=== PATIENT | female | born 1940 | race Caucasian/White ===

== ENCOUNTER 2022-04-15 21:45 | Emergency (ER) | payer MEDICARE, OTHER ==
[~2022-04-15] VITALS: Ht 162.6 cm; Wt 65.0 kg
[2022-04-15] MEDS ORDERED: ATOR40TA28 PO (21:57)
[2022-04-15] MEDS ORDERED: OMEP20 PO (21:57)
[2022-04-15] MEDS ORDERED: ALEN35TA41 PO (21:57)
[2022-04-15] MEDS ORDERED: MELA5TAB40 PO (21:57)
[2022-04-15] MEDS ORDERED: MULT-1203 PO (21:57)
[2022-04-15] MEDS ORDERED: METF-1211 PO (21:57)
[2022-04-15] MEDS ORDERED: LEVO75 PO (21:57)
[2022-04-15] MEDS ORDERED: MEMA5 PO (21:57)
[2022-04-15] MEDS ORDERED: LOSA-382 PO (21:57)
[2022-04-15] MEDS ORDERED: VITA-328 PO (21:57)
[2022-04-15] MEDS ORDERED: VIT1CAPS28 PO (21:57)
[2022-04-15] MEDS ORDERED: ROPI2TAB26 PO (21:57)
[2022-04-15] MEDS ORDERED: BIOT1CAP3 PO (21:57)
[2022-04-15] MEDS ORDERED: ACETAMINOPHEN 325 MG TABLET PO ONE (22:30)
[2022-04-15 22:46] LABS: BASOPHILS % (AUTO) 0.5 % (0.0-2.0); EOSINOPHILS % (AUTO) 3.3 % (1.0-6.0); HEMATOCRIT 37.4 % (36-46); HEMOGLOBIN 12.5 g/dL (12.0-16.0); LYMPHOCYTES # (AUTO) 1.7 K/uL (1.0-4.8); LYMPHOCYTES % (AUTO) 31.2 % (22.0-44.0); MEAN CORPUSCULAR HGB CONC 33.5 G/dL (31.0-37.0); MEAN CORPUSCULAR VOLUME 84 fL (80-100); MONOCYTES # (AUTO) 0.5 K/uL (0.1-1.0); MONOCYTES % (AUTO) 9.6 % (2.0-9.0); NEUTROPHILS # (AUTO) 3.1 K/uL (1.8-7.7); NEUTROPHILS % (AUTO) 55.4 % (40.0-70.0); PLATELET COUNT (AUTO) 312 K/uL (150-450); RED BLOOD CELL COUNT(AUTO) 4.47 MIL/uL (4.00-5.20); RED CELL DISTRIBUTION WIDTH 14.7 % (11.5-14.5)
[2022-04-15 22:55] LABS: ANION GAP 10 mmol/L (8-16); CARBON DIOXIDE 27 mmol/L (22-29); CHLORIDE 101 mmol/L (98-107); CREATININE 0.71 mg/dL (0.60-1.30); GLOMERULAR FILTR. RATE CALC > 60 mL/min (>60); GLUCOSE,RANDOM 148 mg/dL (70-110); POTASSIUM 3.7 mmol/L (3.5-5.1); SODIUM SERUM 138 mmol/L (136-145); UREA NITROGEN, BLOOD 11 mg/dL (7-18)
[2022-04-15 23:00] LABS: ALANINE AMINOTRANSFERASE 19 U/L (12-78); ALBUMIN 3.7 g/dL (3.4-5.0); ALKALINE PHOSPHATASE 80 U/L (46-116); ASPARTATE AMINOTRANSFERASE 10 U/L (15-37); BILIRUBIN,TOTAL 0.2 mg/dL (0.1-1.0); TOTAL PROTEIN, SERUM 7.9 g/dL (6.4-8.2)
[2022-04-15 23:59] LABS: ERYTHROCYTE SEDIMENTATION RATE 45 MM/HR (0-20)
[2022-04-16 01:05] VITALS: BP 156/77
== END 2022-04-16 01:17 | disposition home or self-care (01) ==
LOC: EMS 21:58
DX: R51.9 Headache, unspecified (principal); I10 Essential (primary) hypertension; E11.9 Type 2 diabetes mellitus without complications; E78.00 Pure hypercholesterolemia, unspecified; E03.9 Hypothyroidism, unspecified; Z93.3 Colostomy status; Z88.2 Allergy status to sulfonamides
CPT/HCPCS: 70450; 80053; 82962; 85025; 85651; 99284